=== PATIENT | male | born 1955 | race Caucasian/White ===

== ENCOUNTER → 2019-12-03 07:40 | Outpatient (CLI) | payer OTHER, SELFPAY ==
--- NOTE | ~2019-12-03 | US_ITS ---
EXAMINATION: US abdomen complete DATE: 12/03/2019 08:17 INDICATION: Gastroesophageal reflux disease, abdominal bloating TECHNIQUE: Multiple grayscale and Doppler ultrasound images of the abdomen were obtained. COMPARISON: None available FINDINGS: Bowel gas obscures visualization of the pancreas. The liver demonstrates increased echogeni city, heterogenous echotexture, and decreased through transmission. No surface nodularity. Normal hep atopetal flow in the main portal vein. The gallbladder is normal with no abnormal wall thickening, pe richolecystic fluid or stones. The normal common bile duct measures 4 mm. There was no sonographic Mu rphy sign. The visualized portions of the aorta and inferior vena cava are normal. The right kidney measures 10.3 x 6.0 x 5.7 cm. The left kidney measures 11.7 x 6.4 x 5.5 cm. The kidn eys demonstrate normal parenchymal echogenicity. There is no hydronephrosis. The spleen is normal in appearance and measures 11.3 cm. IMPRESSION: 1. Diffuse hepatic steatosis. Reviewed, dictated and finalized at location A.
== END ==
PROVIDERS: PCP Family Medicine; Visit Provider Family Medicine
DX: K21.9 Gastro-esophageal reflux disease without esophagitis (principal); K76.0 Fatty (change of) liver, not elsewhere classified
CPT/HCPCS: 76700

== ENCOUNTER 2023-03-26 12:41 | Emergency (ER) | payer MEDICARE, SELFPAY ==
[2023-03-26 13:04] VITALS: BP 177/90; PULSE 52; RESP 18; TEMP 36.4; O2SAT 100
--- NOTE | 2023-03-26 13:38 | ECG_ITS ---
Measurements Intervals [place] Rate: 52 P: 31 NC: 175 QRS: 18 QRSD: 94 T: 24 QT: 409 QTc: 382 Interpretive Statements SINUS BRADYCARDIA OTHERWISE NORMAL ELECTROCARDIOGRAM NO PREVIOUS ECG AVAILABLE FOR COMPARISON Electronically Signed On 03-27-2023 7:29:00 BROTHEL KEEPER by Nelson Millan M.D.
--- NOTE | 2023-03-26 13:49 | ED.GENADULT ---
HPI - General Adult General Chief complaint: Abdominal Pain Stated complaint: loss of weight,no appetite History of Present Illness HPI narrative: 67-year-old male presents to the Urgent Care today with symptoms that started 2-3 weeks ago. His symptoms include lightheadedness, jittery, hot and cold flashes, excessive weight loss of 20 lb over the last 2 weeks, excessive thirst, decreased appetite, and increased acid reflux. Patient has a history of GERD and takes omeprazole 40 mg daily but states that has not been helping and denies chest pain and pressure, difficulty breathing, and shortness of breath. Patient has a history of hypertension and states he takes his medication daily which is lisinopril and atenolol and despite taking his medications regularly has had increased blood pressures prior to his pill in the morning of 189-190 systolic. patient also reports difficulty with sleep and like his mind will not shut down was recently started on sertraline by his PCP. patient also reports diarrhea that has been lasting for years but feels like he goes way too much more recently and states he will have 4 bowel movements just in the morning alone that are watery and loose. patient recently had a dental post placed 1 month ago for which she took amoxicillin and does not remember the doses or the amount of time he took it but he finished the full course. patient also has a past history of gout for which he takes allopurinol and recently was prescribed for pre diabetes metformin 500 mg twice a day and does not recall his A1c result. Related Data Home Medications Medication Instructions Recorded Confirmed allopurinol 100 mg tablet mg 03/26/23 aspirin 81 mg chewable tablet 81 mg PO DAILY 03/26/23 03/26/23 atenolol 50 mg tablet mg 03/26/23 doxylamine succinate 25 mg tablet 25 mg PO HS 03/26/23 03/26/23 (Unisom (doxylamine)) lisinopril 40 mg tablet mg 03/26/23 metformin 500 mg tablet,extended mg PO 03/26/23 release 24 hr clivyhhl-uak-[id number] 200 mcg-lycop tablet PO 03/26/23 175 mcg-lutei 250 mcg-herb 178 tablet ([facility] Multivitamin For Men) omeprazole 40 mg capsule,delayed mg 03/26/23 release sertraline 25 mg tablet mg 03/26/23 Allergies Allergy/AdvReac Type Severity Reaction Status Date / Time No Known Allergies Allergy Verified 03/26/23 13:11 Review of Systems Review of Systems: CONSTITUTIONAL: Denies fever, positive chills and sweats. positive general weakness and feeling flush. positive 20 lb weight loss over 2 weeks. EYES: Denies visual changes, redness, or discharge. ENT: Denies rhinorrhea, congestion, sore throat, or otalgia. CARDIOVASCULAR: Denies chest pain, palpitations, or edema. RESPIRATORY: Denies cough or dyspnea. GASTROINTESTINAL: positive abdominal pain, nausea, negative vomiting, and positive diarrhea. positive decreased appetite and increased thirst. GENITOURINARY: Denies dysuria or hematuria. denies frequency. SKIN: Denies rash or itching. MUSCULOSKELETAL: Denies back pain, joint pain, or myalgia. NEUROLOGIC: Denies headache, numbness, or weakness. PSYCHIATRIC: positive anxiety and started sertraline 25 mg daily yesterday prescribed by his PCP. [facility] Past Medical History Medical History (Updated 03/26/23 @ 14:32 by OTTO Murphy) Anxiety Diabetes GERD (gastroesophageal reflux disease) Hypertension Comments at the time of my signature I agree with nursing past medical history, surgical, social, and family history. There is no relevant family history pertinent to the presenting complaint. Exam Narrative: GENERAL: Well-appearing, well-nourished, and in no acute distress. HEAD: Normocephalic, atraumatic. EYES: PERRLA and EOMI. ENT: Nares clear, no rhinorrhea or epistaxis. Mucous membranes moist. posterior pharynx with no erythema, tonsillar enlargement, exudates or lesions present. Bilateral TMs are clear no erythema or foreign bodies the canal. NECK: Supple. No lymph
[2023-03-26 13:51] LABS: Glucose Point of Care 99 mg/dl (65-105)
== END 2023-03-26 14:28 | disposition home or self-care (01) ==
PROVIDERS: Emergency Provider Nurse Practitioner Family; PCP Family Medicine
DX: R63.4 Abnormal weight loss (principal); Z68.29 Body mass index [BMI] 29.0-29.9, adult; K21.9 Gastro-esophageal reflux disease without esophagitis; R63.1 Polydipsia; R31.9 Hematuria, unspecified; E11.9 Type 2 diabetes mellitus without complications; I10 Essential (primary) hypertension; Z79.82 Long term (current) use of aspirin
CPT/HCPCS: 81003; 82948; 87081; 87086; 87426; 87804; 87880; 93005; 99203; G0463

== ENCOUNTER 2023-07-12 10:27 | Emergency (ER) | payer MEDICARE, SELFPAY ==
[2023-07-12] VITALS (13 sets, daily range): BP systolic 138–167; BP diastolic 86–116; PULSE 65–75; RESP 14–23; TEMP 36.2
--- NOTE | ~2023-07-12 | CT_ITS ---
EXAMINATION: CT brain wo con DATE: 07/12/2023 13:36 INDICATION: Dizziness. Fall. TECHNIQUE: Computed tomography (CT) of the head was performed without intravenous contrast. The mA wa s adjusted according to patient size. Iterative reconstruction technique was employed. The dose-lengt h product was 681.00 mGy-cm. COMPARISON: None FINDINGS: There is no intracranial hemorrhage, acute infarction, or abnormal intracranial mass lesion . There are scattered areas of low attenuation in the cerebral white matter, which is within normal l imits for the patient's age. The ventricles are normal in size. There is mucosal thickening in the pa ranasal sinuses. The orbits are normal. The mastoid air cells are normal. IMPRESSION: 1. Normal aging brain. Reviewed, dictated and finalized at location A. IMPRESSION: 1. Normal aging brain.
--- NOTE | ~2023-07-12 | XR_ITS ---
XR chest 1V portable DATE: 07/12/2023 14:01 INDICATION: Dizziness. Confusion, fall. TECHNIQUE: Portable AP chest on 07/12/2023 at 1357 hours COMPARISON: None FINDINGS: Normal heart size. No hilar or mediastinal enlargement. No pulmonary infiltrate or consolid ation, pleural effusion or pulmonary vascular congestion or pneumothorax. Levoscoliosis and degenerative spurring of the thoracic spine. IMPRESSION: No active cardiopulmonary disease Reviewed, dictated and finalized at location B.
--- NOTE | 2023-07-12 10:59 | ECG_ITS ---
SEE SCANNED COPY FOR CONFIRMED REPORT MTDD
[2023-07-12 11:16] LABS: Basophils Percent Auto 0.2 % (0.2-1.2); Eosinophils Absolute Auto 0.1 K/mm3 (0-0.3); Eosinophils Percent Auto 0.8 % (0-4.4); Hematocrit 43.4 % (42.0-52.0); Hemoglobin 15.4 g/dL (14.0-18.0); Immature Granulocyte Absolute 0.04 K/mm3 (0.00-0.031); Immature Granulocyte Percent A 0.4 % (0-0.5); Lymphocytes Absolute Auto 0.76 K/mm3 (0.9-3.2); Lymphocytes Percent Auto 8.2 % (18.3-44.2); Mean Corpuscular HGB Conc 35.5 g/dl (32-36); Mean Corpuscular Volume 87.5 fl (80-100); Mean Platelet Volume 9.8 fl (7.4-10.4); Monocytes Absolute Auto 0.3 K/mm3 (0.1-0.6); Monocytes Percent Auto 3.3 % (2.6-8.5); Neutrophils Absolute Auto 8.1 K/mm3 (1.3-6.7); Neutrophils Percent Auto 87.1 % (45.5-73.1); Platelet Count Result 247 k/mm3 (150-375); Red Blood Count 4.96 M/mm3 (4.6-6.20); Red Cell Distribution Width 12.3 % (11.5-14.5); White Blood Count 9.3 K/mm3 (4.5-10.0)
[2023-07-12 11:25] LABS: Alanine Aminotransferase 35 U/L (6-50); Albumin Level 4.7 g/dL (3.5-5.1); Alkaline Phosphatase 66 U/L (38-126); Anion Gap 12 mmol/L (4-12); Aspartate Amino Transferase 26 U/L (17-59); Bilirubin,Total 0.8 mg/dL (0.2-1.3); Blood Urea Nitrogen 14 mg/dL (9-20); Calcium 9.3 mg/dL (8.4-10.2); Carbon Dioxide 24 mmol/L (22-30); Chloride 90 mmol/L (98-107); Estimated CRCL calculation 74 ml/min; Estimated Glomerular Filt Rate > 60; Glucose 134 mg/dL (65-110); Potassium 4.4 mmol/L (3.4-5.0); Sodium 126 mmol/L (137-145)
[2023-07-12] MEDS: SODIUM CHLORIDE 0.9% IV 2,000 ML 999 ML IV CONT (13:49)
[2023-07-12 14:19] LABS: Appearance Urine Clear (Clear); Bilirubin Urine Negative (Negative); Blood Urine Negative (Negative); Color Urine Yellow (Yellow); Glucose Urine UA Negative (Negative); Ketones Urine Negative (Negative); Leukocyte Esterase Ur Negative LEU/UL (Negative); Nitrate Urine Negative (Negative); Protein Urine Negative (Negative); Specific Grav Ur 1.009 (1.001-1.035); Urobilinogen Urine 0.2 mg/dL (<2.0)
[2023-07-12 14:37] LABS: Ethanol < 10 mg/dL (<10); Magnesium 1.6 mg/dL (1.6-2.3)
[2023-07-12 14:37] LABS: Amphetamine Screen Urine Negative (Negative); Barbiturate Screen Urine Negative (Negative); Benzodiazepines Screen Urine Negative (Negative); Cannabinoid Screen Urine Negative (Negative); Cocaine Screen Urine Negative (Negative); Methadone Screen Urine Negative (Negative); Opiate Screen Urine Negative (Negative); Phencyclidine Screen Urine Negative (Negative)
--- NOTE | 2023-07-12 14:44 | ED.GENADULT ---
HPI - General Adult General Chief complaint: Dizziness Stated complaint: Dizzy Time Seen by Provider: 07/12/23 13:07 History of Present Illness HPI narrative: This is a 59-year-old male with a history of anxiety tinnitus and CVA March presenting after a fall. Patient was recently prescribed Klonopin and venlafaxine for anxiety symptoms. He took them at 7:00 a.m.. At 9:15 a.m. tract get up out chair and fell to his knees. 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 He was talking about his 's brother who is . At this time the patient's only complaint is the tinnitus. He is denying fever chills chest pain difficulty breathing abdominal pain urinary symptoms or other complaints. Patient has been dealing with tinnitus and no other symptoms since he was diagnosed with a stroke back in March. He was recently prescribed Klonopin venlafaxine amoxicillin and a steroid all of which he took for the 1st time this morning. Related Data Home Medications Medication Instructions Recorded Confirmed allopurinol 100 mg tablet mg 03/26/23 aspirin 81 mg chewable tablet 81 mg PO DAILY 03/26/23 03/26/23 atenolol 50 mg tablet mg 03/26/23 doxylamine succinate 25 mg tablet 25 mg PO HS 03/26/23 03/26/23 (Unisom (doxylamine)) lisinopril 40 mg tablet mg 03/26/23 metformin 500 mg tablet,extended mg PO 03/26/23 release 24 hr wxuqwevc-uxb-kopjm 200 mcg-lycop tablet PO 03/26/23 175 mcg-lutei 250 mcg-herb 178 tablet ([employer] Multivitamin For Men) omeprazole 40 mg capsule,delayed mg 03/26/23 release amoxicillin 875 mg-potassium tablet 07/12/23 clavulanate 125 mg tablet clonazepam 0.5 mg tablet mg 07/12/23 hydrochlorothiazide 25 mg tablet mg 07/12/23 hydroxyzine HCl 25 mg tablet mg 07/12/23 lorazepam 0.5 mg tablet mg 07/12/23 prednisone 20 mg tablet mg 07/12/23 sucralfate 1 gram tablet 07/12/23 venlafaxine 37.5 mg mg PO 07/12/23 capsule,extended release 24 hr Allergies Allergy/AdvReac Type Severity Reaction Status Date / Time No Known Allergies Allergy Verified 03/26/23 13:11 COUNTS INCLUDE 234 BEDS AT THE [facility] Past Medical History Medical History (Updated 07/12/23 @ 16:08 by Aung Black MD) Anxiety Diabetes GERD (gastroesophageal reflux disease) Hypertension Exam Narrative: APPEARANCE: Anxious appearing AOx4 Head: atraumatic. EYES: EOMI, NOSE: Atraumatic NECK: Trachea midline RESPIRATORY: No increased rate of breathing CTAB CARDIOVASCULAR: RRR, no peripheral edema ABDOMINAL: Non-distended soft nontender MUSCULOSKELETAl: No obvious deformities NEURO: Alert. Cranial nerves 2-12 grossly intact. Sensation light touch, motor function cerebellar function intact for 4 extremities. Gait exam was normal. SKIN:: Warm, dry. Normal color PSYCHIATRIC: Normal affect Course Vital Signs Vital signs: Vital Signs Temperature 97.2 F L 07/12/23 10:27 Pulse Rate 65 07/12/23 10:27 Respiratory Rate 16 07/12/23 10:27 Blood Pressure 157/86 H 07/12/23 10:27 Temperature 97.2 F L 07/12/23 10:27 Pulse Rate 70 07/12/23 14:30 Respiratory Rate 23 H 07/12/23 14:30 Blood Pressure 138/86 07/12/23 13:01 Medical Decision Making MDM Narrative Medical decision making narrative: -Course: 67 year-old male presenting fall and confusion this morning after taking several new medications. Broad workup was ordered. Workup unremarkable including CBC CMR a RN UDS alcohol CT head viral swabs and chest x-ray. Suspect this may be due to a medication side effect. On re-evaluation patient's mental status has improved. He is able to ambulate around the emergency department without difficulty. Patient family are comfortable following up with her primary care physician and neurologist for further management. I have recommended caution when starting new medications and take another time to see if 1 medication is causing his confusion. I suspect Klonopin is the offen
[2023-07-12 14:49] LABS: NT Pro B Type Natriuretic Pept < 20 pg/mL (19.9-100); Troponin I < 0.012 ng/mL (0.000-0.034)
[2023-07-12 14:54] LABS: Influenza A QL RT-PCR Negative (Negative); Influenza B QL RT-PCR Negative (Negative); RSV RNA, RT-PCR Negative (Negative); SARS-CoV-2 RNA PCR Negative (Negative)
[2023-07-12 14:56] LABS: Add Urine Microscopic? NO
[2023-07-12 15:12] LABS: Lactic Acid Reflex 1.6 mmol/L (0.7-2.0)
== END 2023-07-12 16:24 | disposition home or self-care (01) ==
PROVIDERS: Student in an Organized Health Care Education/Training Program; Emergency Provider Emergency Medicine; PCP Family Medicine
DX: R41.0 Disorientation, unspecified (principal); T50.905A Adverse effect of unspecified drugs, medicaments and biological substances, initial encounter; Z11.52 Encounter for screening for COVID-19; I10 Essential (primary) hypertension; E11.9 Type 2 diabetes mellitus without complications; K21.9 Gastro-esophageal reflux disease without esophagitis; F41.9 Anxiety disorder, unspecified; Z86.73 Personal history of transient ischemic attack (TIA), and cerebral infarction without residual deficits; Z79.82 Long term (current) use of aspirin; Z79.84 Long term (current) use of oral hypoglycemic drugs; Z79.52 Long term (current) use of systemic steroids; Z79.899 Other long term (current) drug therapy
CPT/HCPCS: 36415; 70450; 71045; 80053; 80307; 81003; 83605; 83735; 83880; 84484; 85025; 87637; 93005; 96360; 96361; 99284; J7030